=== PATIENT | female | born 1930 | race Caucasian/White ===

== ENCOUNTER 2017-12-26 10:03 | Emergency (ER) | payer OTHER ==
[~2017-12-26] VITALS: Ht 152.4 cm; Wt 59.0 kg
[~2017-12-26 10:03] MED LIST: ALDACTONE25 MG; AVAPRO300 MG; CARDIZEM CD120 MG; CARDURA8 MG; DICLOFENAC SODI50 MG PO; EVISTA60 MG; GLUCOPHAGE XR500 MG; HYDROCHLOROTH12.5 M1; LIPITOR20 MG; NEURONTIN300 MG; SYNTHROID50 MCG; TESSALON PERLE100 MG PO; TUSSI PRES-B L120 M1 PO; ZITHROMAX TRI-500 MG PO; ZOCOR40 MG
[2017-12-26] MEDS ORDERED: NEURONTIN300 MG PO (10:09)
[2017-12-26] MEDS ORDERED: SYNTHROID75 MCG PO (10:09)
[2017-12-26] MEDS ORDERED: METFORMIN HCL500 MG PO (10:09)
[2017-12-26] MEDS ORDERED: LIPITOR20 MG PO (10:10)
[2017-12-26] MEDS ORDERED: HYDRALAZINE HCL25 MG PO (10:11)
[2017-12-26] MEDS ORDERED: AVAPRO150 MG PO (10:11)
[2017-12-26] MEDS ORDERED: DILTIAZEM 24HR120 MG PO (10:11)
[2017-12-26] MEDS ORDERED: ALDACTONE25 MG PO (10:12)
== END 2017-12-26 11:17 | disposition home or self-care (01) ==
LOC: ER 10:03
DX: I95.89 Other hypotension (principal); R42 Dizziness and giddiness

== ENCOUNTER 2019-10-26 09:00 | Emergency (ER) | payer OTHER ==
[~2019-10-26] VITALS: Ht 149.9 cm; Wt 62.6 kg
[~2019-10-26 09:00] MED LIST changes: +ALDACTONE25 MG PO; +AVAPRO150 MG PO; +DILTIAZEM 24HR120 MG PO; +HYDRALAZINE HCL25 MG PO; +LIPITOR20 MG PO; +METFORMIN HCL500 MG PO; +NEURONTIN300 MG PO; +SYNTHROID75 MCG PO
[2019-10-26] MEDS ORDERED: VALSARTAN160 MG (09:45)
== END 2019-10-26 16:29 | disposition home or self-care (01) ==
LOC: ER 09:00 → CPU-OBS 09:11 → ER 16:29
DX: R07.89 Other chest pain (principal); Z20.828 Contact with and (suspected) exposure to other viral communicable diseases

== ENCOUNTER 2019-11-20 23:23 | Emergency (ER) | payer OTHER ==
[~2019-11-20] VITALS: Ht 149.9 cm; Wt 59.9 kg
[~2019-11-20 23:23] MED LIST changes: +VALSARTAN160 MG
== END 2019-11-21 04:31 | disposition home or self-care (01) ==
LOC: ER 23:23 → CPU-OBS 23:24 → ER 23:24 → CPU-OBS 11-21 04:31
DX: R07.89 Other chest pain (principal); F06.4 Anxiety disorder due to known physiological condition; Z20.828 Contact with and (suspected) exposure to other viral communicable diseases